=== PATIENT | female | born 1990 | race Caucasian/White ===

== ENCOUNTER 2024-01-02 16:19 | Emergency (ER) | payer OTHER, SELFPAY ==
[2024-01-02 16:21] VITALS: BP 113/62; BMI 23.2
[2024-01-02 16:23] VITALS: BP 113/62
[2024-01-02 16:38] LABS: % Basophils 0.3 % (0-2); % Immature Granulocytes 0.3 % (0-0.5); % Monocytes 2.4 % (1.7-9.3); Absolute Lymphocytes 0.6 10^3/uL (1.2-3.4); Absolute Monocytes 0.2 10^3/uL (0.1-0.6); Absolute Neutrophils 7.1 10^3/uL (1.4-6.5); Hematocrit 31.6 % (37.0-47.0); Hemoglobin 10.6 g/dL (12.0-16.0); Mean Corp Hgb Conc. 33.5 g/dL (33.0-37.0); Mean Corpuscular Hgb 32.6 pg (27.0-31.0); Mean Corpuscular Volume 97.2 fL (81.0-99.0); Nucleated Red Blood Cells % 0 %; Red Blood Cell Count 3.25 10^6/uL (4.20-5.40); Red Cell Dist. Width 12.4 % (11.5-14.5); White Blood Cell Count 7.8 10^3/uL (4.8-10.8)
[2024-01-02 16:48] LABS: HCG, Serum Qualitative Screen Negative
[2024-01-02 16:51] LABS: ALT (SGPT) 12 U/L (0-35); AST (SGOT) 22 U/L (14-36); Albumin 4.4 g/dl (3.5-5.0); Alkaline Phosphatase 48 U/L (38-126); Blood Urea Nitrogen 9 mg/dl (7-17); Calcium 9.1 mg/dl (8.4-10.2); Carbon Dioxide 26 mmol/L (22-30); Chloride 103 mmol/L (98-107); Estimated Creatinine Clearance 105 ml/min; Glucose 126 mg/dl (70-99); Potassium 3.9 mmol/L (3.5-5.1); Sodium 136 mmol/L (135-145); Total Bilirubin 0.4 mg/dl (0.2-1.3); Total Protein 6.9 g/dl (6.3-8.2); eGFR > 60.00
[2024-01-02 17:00] VITALS: BP 105/62
[2024-01-02 17:04] LABS: Platelet Count 134 10^3/uL (130-400)
--- NOTE | 2024-01-02 17:40 | ED.GENMED ---
History of Present Illness
General
Chief Complaint: Seizure
Source: patient, spouse and family
Exam Limitations: none
Time Seen by Provider: 01/02/24 17:16
Nursing documentation reviewed up to this point in time: agreed with
History of Present Illness
History of Present Illness:
33 yo female presents to the emergency due to a seizure. She gets pain induced seizures. Seizure occurred around 3 PM lasted 10 seconds.
Past History
Past History
ED Past Medical History: Seizures
ED Past Surgical History: Tonsilectomy (And adenoidectomy, tympanic membrane repair) and Other (Hernia repair)
Social History
Tobacco: Non-smoker
Alcohol: None
Drug: None
Personal:
Living: with family
Review of Systems
Review of Systems
Allergies reviewed?: Yes
All Other Systems: Not applicable
Constitutional: Reports no symptoms
EENT: Reports no symptoms
Respiratory: Reports no symptoms
Cardiac: Reports no symptoms
ABD/GI: Reports abdominal pain
: Reports no symptoms
Musculoskeletal: Reports no symptoms
Skin: Reports no symptoms
Neurological: Reports no symptoms
Endocrine: Reports no symptoms
Hematologic/Lymphatic: Reports no symptoms
Psychiatric: Reports no symptoms
Phy Exam
Physical Exam
Physical Exam:
Physical Exam
General: no apparent distress, not acutely ill
Neck: supple. no meningeal signs. normal posterior pharynx
Heart: s1/s2 regular rate and rhythm, no murmur. equal radial
pulses.
HEENT: Pupils equal round reactive to light, EOMI
Lungs: no acute respiratory distress. clear bilaterally
Abdomen: normal bowel sounds. not tender. no CVAT, abdominal incision is clean dry intact
Neuro: alert and oriented. no focal neurological deficits cranial nerves II through XII intact
Skin: no rash
Psychiatric: well kept. interactive and cooperative
Extremities: no edema. no calf tenderness. negative homans. good distal pulses
Course
Orders/Labs/Results
Orders:
Orders
01/02/24 16:30
Test Result ONCE
01/02/24 16:31
Complete Blood Count/With Diff Urgent
Comprehensive Metabolic Panel Urgent
HCG, Serum Qualitative Screen Urgent
01/02/24 16:43
Lamictal [Lamotrigine (Lamictal)] [S] Urgent
01/02/24 17:39
Morphine Sulfate 2 mg IV NOW STA
Ondansetron Injectable [Zofran] 4 mg IV NOW STA
01/02/24 17:45
Oxycodone [Roxicodone] 5 mg PO NOW STA
Abnormal Lab Results
01/02/24
16:31
RBC 3.25 L 10^6/uL
(4.20-5.40)
Hgb 10.6 L g/dL
(12.0-16.0)
Hct 31.6 L %
(37.0-47.0)
MCH 32.6 H pg
(27.0-31.0)
Absolute Neuts (auto) 7.1 H 10^3/uL
(1.4-6.5)
Absolute Lymphs (auto) 0.6 L 10^3/uL
(1.2-3.4)
Neutrophils % 90.0 H %
(42.2-75.2)
Lymphocytes % 7.0 L %
(20.5-51.1)
Glucose 126 H mg/dl
(70-99)
01/02/24 16:31
01/02/24 16:31
Vital Signs
Initial and Last Documented VS:
Initial Vital Signs
Temp Pulse Resp BP Pulse Ox
97.4 F 80 16 113/62 100
01/02/24 16:21 01/02/24 16:21 01/02/24 16:21 01/02/24 16:21 01/02/24 16:21
Last Documented Vital Signs
Temp Pulse Resp BP Pulse Ox
97.4 F 98 18 105/62 98
01/02/24 16:21 01/02/24 17:30 01/02/24 17:30 01/02/24 17:00 01/02/24 17:30
MDM/Problems Addressed
Differential Diagnosis Includes:
Seizure, wound dehiscence
MDM/Problems Addressed:
33-year-old female with seizure, does not appear postictal at this time, stable for discharge.
*Pulse Oximetry
Patient hypoxic: no
*EKG
Interpreted by ED Provider?: NA
*Social Staff Worker Interpretation
Rate: Social Staff Worker- N/A
*Critical Care Note
Total Time (30-74mins, 75-104mins- exclusive of procedures): Not Applicable
Data Reviewed
Further Testing Considered But Not Given:
CT head not indicated
ED Attending Note
-
Portions of this chart may have been created with voice recognition software.� Occasional wrong word or��sound alike� substitutions may have occurred due to the inherent limitations of voice recognition software.
Discharge Plan
Departure
Patient Disposition: Home (Routine Discharge)
Date of Disposition: 01/02/24
Time of Disposition: 17:48
Patient with high blood pressure during this ER visit?: No
Condition: Good
Discharge Problem:
Seizure
Instructions: Seizures, Adult (DC)
Activity Restrictions/Additional Instructions:
Follow-up with neurology. Return for any concerns.
Interventions
Interventions:
*Risk Screen - Suicide Last Done: 01/02/24 16:27
*General Assessment Last Done: 01/02/24 16:26
*Neglect/Abuse Screening Last Done: 01/02/24 16:27
*ED COVID-19 Vaccine History Last Done: 01/02/24 16:26
ED- Cardiac Assessment Last Done: 01/02/24 16:28
ED- Neurological Assessment Last Done: 01/02/24 16:28
ED- Pulmonary Assessment Last Done: 01/02/24 16:28
Discharge Date and Time
Print Language: [place]
[2024-01-02] MEDS: ZOFRAN 4 MG IV (17:44)
[2024-01-02] MEDS: MORPHINE SULFATE 2 MG IV (17:44)
[2024-01-02 18:00] VITALS: BP 109/68
[2024-01-06 00:24] LABS: Lamotrigine (Lamictal) 2.7 ug/mL (3.0-15.0)
== END 2024-01-02 18:08 | disposition home or self-care (01) ==
LOC: EMR 16:19
PROVIDERS: EMERGENCY PHYSICIAN Emergency Medicine; FAMILY PHYSICIAN Family Medicine
DX: G40.909 Epilepsy, unspecified, not intractable, without status epilepticus (principal)
CPT/HCPCS: 99283; 96374; 96375; 80053; 80175; 84703; 85025

== ENCOUNTER 2024-12-17 08:28 | Emergency (ER) | payer BC, SELFPAY ==
[2024-12-17] VITALS (8 sets, daily range): BP systolic 102–125; BP diastolic 56–81; PULSE 85–91
--- NOTE | 2024-12-17 10:01 | ED.GENMED ---
History of Present Illness
General
Chief Complaint: Fainting/Passed Out
Source: patient and spouse
Exam Limitations: none
Time Seen by Provider: 12/17/24 09:21
Nursing documentation reviewed up to this point in time: agreed with
History of Present Illness
History of Present Illness:
The patient is a pleasant 33-year-old female with a past medical history of epilepsy and multiple episodes of lightheadedness associated with passing out, who reports that when she woke up this morning she felt clammy, went to the bathroom, and on
her way back from the bathroom felt lightheaded and sat down next to her bed. Patient reports that she was able to get into bed but then passed out for a few seconds. The episode was witnessed by her . The patient denies any recent shortness
of breath or chest pain. Patient reports she feels completely better now. She reports that she recently has been under tremendous stress with a newly diagnosed cervical spine problem and admits that she has not been eating and drinking like she
usually does. Patient denies a history of PE and DVT. Denies leg pain and swelling. Patient reports that the symptoms were not typical of her seizure. Patient denies pain at this time. Patient does report that she had particularly bad spasming
in her neck upon waking up as well. She reports that it was a ' perfect storm for passing out today'.
Past History
Past History
ED Past Medical History: Seizures and Psychiatric (Anxiety)
ED Past Surgical History: Tonsilectomy (And adenoidectomy, tympanic membrane repair) and Other (Hernia repair)
Social History
Tobacco: Non-smoker
Alcohol: None
Drug: None
Personal:
Living: with family
Employment: Employed
Family History
Family History: Other
Review of Systems
Review of Systems
Allergies reviewed?: Yes
All Other Systems: ROS reviewed and negative except as documented in HPI and ROS
Constitutional: Reports no symptoms
EENT: Reports no symptoms
Respiratory: Reports no symptoms
Cardiac: Reports diaphoresis and syncope (Lightheadedness and passing out)
ABD/GI: Reports no symptoms
: Reports no symptoms
Musculoskeletal: Reports muscle stiffness and other (Neck pain)
Skin: Reports no symptoms
Neurological: Denies weakness or numbness
Endocrine: Reports no symptoms
Hematologic/Lymphatic: Reports no symptoms
Psychiatric: Reports no symptoms
Phy Exam
Physical Exam
Physical Exam:
GENERAL: Alert , in no apparent distress. Well and comfortable appearing, smiling conversational
EYE: pupils equal and reactive. anicteric
NECK: Supple, nontender, no meningismus, no significant adenopathy.
ENT: posterior pharynx is clear, oral mucosa is moist. TM clear b/l, nares patent.
CARDIAC: Regular rate and rhythm. no murmur.
LUNGS: Clear breath sounds bilaterally, no acute respiratory distress, no wheezes/rales/rhonchi
ABDOMEN: Soft, nondistended, without focal tenderness, no r/g, no cvat. normoactive BS.
NEUROLOGICAL: Alert and oriented x3, no focal neuro deficits. Gait is zhou and steady.
SKIN: Warm and dry, normal color, skin intact. No rash.
MUSCULOSKELETAL: No C/C/E. peripheral pulses are full and equal b/l. No palpable tenderness.
PSYCH: Normal and appropriate interaction.
Course
Orders/Labs/Results
Orders:
Orders
12/17/24 08:32
EKG [Electrocardiogram (*1)] Urgent
Reason for Study: Syncope
EKG- Treatment ONCE
12/17/24 10:13
Orthostatic VS- Treatment ONCE
0.9% Sodium Chloride 1000 ml [Nss] 1,000 ml IV BOLUS
12/17/24 10:28
Complete Blood Count/With Diff Urgent
Comprehensive Metabolic Panel Urgent
Abnormal Lab Results
12/17/24
10:28
RBC 4.16 L 10^6/uL
(4.20-5.40)
MCH 32.5 H pg
(27.0-31.0)
MCHC 32.8 L g/dL
(33.0-37.0)
MPV 13.4 H fL
(7.4-10.4)
Absolute Neuts (auto) 7.7 H 10^3/uL
(1.4-6.5)
Absolute Lymphs (auto) 0.4 L 10^3/uL
(1.2-3.4)
Neutrophils % 91.1 H %
(42.2-75.2)
Lymphocytes % 4.6 L %
(20.5-51.1)
Glucose 101 H mg/dl
(70-99)
Calcium 10.3 H mg/dl
(8.4-10.2)
Total Protein 8.6 H g/dl
(6.3-8.2)
Albumin 5.1 H g/dl
(3.5-5.0)
12/17/24 10:28
12/17/24 10:28
Vital Signs
Initial and Last Documented VS:
Initial Vital Signs
Pulse Resp BP Pulse Ox
83 18 121/73 100
12/17/24 08:30 12/17/24 08:30 12/17/24 08:30 12/17/24 08:30
Last Documented Vital Signs
Temp Pulse Resp BP Pulse Ox
97.6 F 81 17 102/56 100
12/17/24 08:31 12/17/24 11:00 12/17/24 11:00 12/17/24 11:00 12/17/24 11:00
MDM/Problems Addressed
Differential Diagnosis Includes:
Vasovagal syncope from neck pain, orthostatic syncope, acute anemia, acute dehydration
MDM/Problems Addressed:
Patient presents with acute episode of lightheadedness and passing out
Chronic conditions affecting care:
Epilepsy
Acute Exacerbation and/or Progression of Chronic Illness:
Patient symptoms do not sound consistent with acute seizure
*Pulse Oximetry
SaO2: 100
Patient hypoxic: no
Comment: 100% on room air
*EKG
Interpreted by ED Provider?: Yes
Interpretation: normal
Comparison EKG: no comparison EKG present
Rate: normal
Rhythm: sinus
[place]: normal axis
Interval: normal interval
QRS Pattern: normal QRS
Ischemia: no ischemia
*Brake Lining Maker Interpretation
Rate: normal
Interpretation: normal
Rhythm: sinus
*Critical Care Note
Total Time (30-74mins, 75-104mins- exclusive of procedures): Not Applicable
Data Reviewed
Review of Other/Old Records Reveals: Labs (Hemoglobin 10.6 in 2023)
Source: patient and spouse
Update Note
Update Note:
Patient watched on cardiac cath tech for several hours with no sign of any cardiac dysrhythmias. Patient symptoms were likely orthostatic in nature. Patient is sitting up and walking around without any symptoms
ED Attending Note
-
Portions of this chart may have been created with voice recognition software.� Occasional wrong word or��sound alike� substitutions may have occurred due to the inherent limitations of voice recognition software.
Discharge Plan
Departure
Patient Disposition: Home (Routine Discharge)
Date of Disposition: 12/17/24
Time of Disposition: 11:23
Patient with high blood pressure during this ER visit?: Yes
Condition: Good
Covid-19: Not Applicable
Discharge Problem:
Syncope and collapse
Instructions: Syncope (Fainting) (DC)
Referrals:
Selma Avila, DO [Family Provider, Family Practice]
Activity Restrictions/Additional Instructions:
Make sure to eat good protein meals and drink lots of fluids to keep yourself hydrated. Return with any chest pain, shortness of breath or any further episodes of passing out.
Interventions
Interventions:
*Risk Screen - Suicide Last Done: 12/17/24 08:55
*General Assessment Last Done: 12/17/24 08:55
*Neglect/Abuse Screening Last Done: 12/17/24 08:55
*ED- Fall Risk Assessment Last Done: 12/17/24 08:55
*ED COVID-19 Vaccine History Last Done: 12/17/24 08:55
ED- Cardiac Assessment Last Done: 12/17/24 08:55
ED- Neurological Assessment Last Done: 12/17/24 08:55
Discharge Date and Time
Print Language: SPANISH
[2024-12-17] MEDS: NSS 1000 IV (10:25)
[2024-12-17 10:46] LABS: % Basophils 0.2 % (0-2); % Eosinophils 0.4 % (0-6); % Immature Granulocytes 0.4 % (0-0.5); % Lymphocytes 4.6 % (20.5-51.1); % Monocytes 3.3 % (1.7-9.3); % Neutrophils 91.1 % (42.2-75.2); Absolute Lymphocytes 0.4 10^3/uL (1.2-3.4); Absolute Monocytes 0.3 10^3/uL (0.1-0.6); Absolute Neutrophils 7.7 10^3/uL (1.4-6.5); Hematocrit 41.2 % (37.0-47.0); Hemoglobin 13.5 g/dL (12.0-16.0); Mean Corp Hgb Conc. 32.8 g/dL (33.0-37.0); Mean Corpuscular Hgb 32.5 pg (27.0-31.0); Mean Platelet Volume 13.4 fL (7.4-10.4); Nucleated Red Blood Cells % 0 %; Platelet Count 135 10^3/uL (130-400); Red Blood Cell Count 4.16 10^6/uL (4.20-5.40); Red Cell Dist. Width 12.5 % (11.5-14.5); White Blood Cell Count 8.5 10^3/uL (4.8-10.8)
[2024-12-17 10:47] LABS: ALT (SGPT) 12 U/L (0-35); AST (SGOT) 19 U/L (14-36); Albumin 5.1 g/dl (3.5-5.0); Alkaline Phosphatase 48 U/L (38-126); Blood Urea Nitrogen 9 mg/dl (7-17); Calcium 10.3 mg/dl (8.4-10.2); Carbon Dioxide 27 mmol/L (22-30); Chloride 107 mmol/L (98-107); Glucose 101 mg/dl (70-99); Potassium 4.9 mmol/L (3.5-5.1); Sodium 142 mmol/L (135-145); Total Bilirubin 0.7 mg/dl (0.2-1.3); Total Protein 8.6 g/dl (6.3-8.2); eGFR > 60.00
== END 2024-12-17 11:41 | disposition home or self-care (01) ==
LOC: EMR 08:28
PROVIDERS: EMERGENCY PHYSICIAN Emergency Medicine; FAMILY PHYSICIAN Family Medicine
DX: R55 Syncope and collapse (principal); G40.909 Epilepsy, unspecified, not intractable, without status epilepticus
CPT/HCPCS: 99283; 96360; 80053; 85025; 93005